=== PATIENT | female | born 1950 | race Hispanic/Latino ===

== ENCOUNTER → 2018-03-05 | Day surgery (SDC) | payer MEDICARE, OTHER ==
[2018-03-03 13:24] LABS: BASOPHILS % 0.4 % (0.0-1.0); EOSINOPHILS # (AUTO) 0.3 (0.0-0.4); EOSINOPHILS % 3.1 % (0.0-6.0); HEMATOCRIT 46.2 % (34.2-44.1); HEMOGLOBIN 15.3 g/dL (12.0-16.0); LYMPHOCYTES # (AUTO) 2.9 (1.0-3.2); LYMPHOCYTES % 28.1 % (18.0-39.1); MEAN CORPUSCULAR HEMOGLOBIN 28.6 pg (28-32); MEAN CORPUSCULAR HGB CONC 33.1 g/dL (31-35); MEAN CORPUSCULAR VOLUME 86.4 fL (81-99); MONOCYTES # (AUTO) 0.7 (0.2-0.8); MONOCYTES % 7.1 % (4.4-11.3); NEUTROPHILS # (AUTO) 6.2 (2.1-6.9); NEUTROPHILS % 60.8 % (38.7-80.0); PLATELET COUNT 235 x10e3/uL (140-360); RED BLOOD COUNT 5.35 x10e6/uL (3.6-5.1); RED CELL DISTRIBUTION WIDTH 12.1 % (11.7-14.4)
[~2018-03-05] MED LIST: ATORVASTATIN CA10 MG PO; DECARA25000 UNIT PO; EEMT DS 1.25-21 EACH PO; FENTANYL CITRATE/PF 100MCG/2 ML INJ ONE; GLUCAGON FOR INJ 1 MG VIAL ONE; LIDOCAINE HCL 2% LOCAL INJ 5 ML SDV VIAL INJ ONE; MIDAZOLAM HCL 2 MG/2 ML VIAL ONE; NADOLOL40 MG PO; OMEPRAZOLE40 MG PO; PROPOFOL IV EMULSION 10 MG/ML 50 ML VIAL ONE; RANITIDINE HCL150 MG PO; TRIAMTERENE-HCTZ1 EA PO; VENLAFAXINE H37.5 MG PO
--- OUTSIDE RECORDS SUMMARY | 2018-03-05 10:53 | XMS REPORT | Clinical Summary ---
Author Author [facility] Organization [facility] Address Unknown Phone Unavailable Care Team Providers Care Assembler Golf Wood Head Name Role Phone Lane John MD PCP Allergies Active Allergy Reactions Severity Noted Date Comments Codeine Hives High 12/19/2016 Latex Hives High 12/19/2016 tape Meperidine Hives High 12/19/2016 Morphine Rash High 12/19/2016 Naloxone Hives High 12/19/2016 Propoxyphene Rash High 12/19/2016 Sulfa (Sulfonamide Swelling High 12/19/2016 throat Antibiotics) Tramadol Itching 03/12/2017 Current Medications Prescription Sig. Disp. Refills Start End Date Status Date atorvastatin (LIPITOR) 10 TK 1 T PO QD 11 11/24/19 Active MG tablet 17 nadolol (CORGARD) 40 MG TAKE 1 T PO QD FOR 30 11 11/24/19 Active tablet DAYS 17 omeprazole (PriLOSEC) 40 TK 1 C PO BID 3 10/30/20 Active MG capsule 16 triamterene-hydrochloroth TK 1 T PO QAM 4 11/24/19 Active iazid (MAXZIDE-25) 17 37.5-25 mg per tablet venlafaxine XR TAKE 2 CS PO WITH FOOD 11 11/24/19 Active (EFFEXOR-XR) 37.5 MG 24 ONCE A DAY 17 hr capsule fenofibrate (TRICOR) 145 Take 145 mg by mouth Active MG tablet daily. traMADol (ULTRAM) 50 mg Take 1 tablet (50 mg 30 tablet 0 02/25/20 Discontin tablet total) by mouth every 6 17 17 ued (six) hours as needed for moderate pain for up to 30 days. Take with food Active Problems Problem Noted Date Aftercare following surgery 03/12/2017 Ganglion of right hand 02/24/2017 Primary localized osteoarthrosis of right hand 02/24/2017 Ganglion cyst of joint of finger of left hand 12/20/2016 Osteoarthritis of finger of left hand 12/20/2016 Encounters Date Type Specialty Care Team Description 04/03/2017 Office Visit Orthopedic Surgery Raul Philip MD Ganglion cyst of joint of finger of left hand (Primary Dx); Aftercare following surgery 03/19/2017 Office Visit Orthopedic Surgery Raul Philip MD Ganglion of right hand (Primary Dx); Osteoarthritis of finger of left hand; Aftercare following surgery 03/19/2017 Documentation Orthopedic Surgery Raul Philip MD 03/12/2017 Office Visit Orthopedic Surgery Raul Philip MD Ganglion cyst of joint of finger of left hand (Primary Dx); Primary localized osteoarthrosis of right hand; Aftercare following surgery after 03/04/2017 Family History Medical History Relation Name Comments Throat cancer Brother Throat cancer Father Heart disease Mother Relation Name Status Comments Brother Brother Alive Brother Alive Father (Age 72) Mother (Age 81) Sister Alive Social History Tobacco Use Types Packs/Day Years Used Date Never Smoker Smokeless Tobacco: Never Used Alcohol Use Drinks/Week oz/Week Comments No Sex Assigned at Date Recorded Not on file Last Filed Vital Signs Not on file Plan of Treatment Health Maintenance Due Date Last Done Comments COLONOSCOPY 02/15/2000 MAMMOGRAM 02/15/2000 SHINGRIX VACCINE (#1) 02/15/2000 ZOSTER VACCINE 2010 PNEUMOCOCCAL 2015 POLYSACCHARIDE VACCINE AGE 65 AND OVER PNEUMOCOCCAL-13 2015 INFLUENZA VACCINE 06/10/2018 Procedures Procedure Name Priority Date/Time Associated Diagnosis Comments ORTHOPEDIC INJURY Routine 03/12/2017 Ganglion cyst of joint of Results for this TREATMENT 11:09 AM CDT finger of left hand procedure are in the Primary localized results section. osteoarthrosis of right hand Aftercare following surgery after 03/04/2017 Results * ORTHOPEDIC INJURY TREATMENT (03/12/2017 11:09 AM) Narrative Raul Philip MD 03/12/2017 11:09 AM Orthopedic Injury Treatment Date/Time: 03/12/2017 11:08 AM Performed by: RAUL PHILIP Authorized by: RAUL PHILIP Consent given by: patient Site marked: site marked Timeout: Immediately prior to procedure a time out was called to verify the correct patient, procedure, equipment, applications support specialist and site/side marked as required Injury Location details: left long finger Pre-procedure assessment Distal perfusion: normal Distal sensation: normal Procedure Manipulation performed? no manipulation performed Anesthetics: local anesthesia not used Immobilization: splint Splint/Brace type: stack splint Post-procedure assessment Distal perfusion: normal Distal sensation: normal Patient tolerance: patient tolerated the procedure well with no immediate complications after 03/04/2017 Insurance Payer Benefit Subscriber ID Type Phone Address Plan / Group MEDICARE MEDICARE xxxxxxxxxx Medicare [place], [place] PART A AND B COLONIAL COLONIAL xxxxxxxxx Commercial [facility] xxxxxxxxx [facility]
[2018-03-05 14:35] LABS: WBC,FECAL (FECAL LACTOFERRIN) POSITIVE (NEGATIVE)
--- NOTE | 2018-03-05 14:56 | Operative Report ---
DATE OF PROCEDURE: March 05, 2018 REFERRING PHYSICIANS: Dell John MD, and Tho Vyas MD PROCEDURES PERFORMED 1. Esophagogastroduodenoscopy with esophageal dilatation and biopsies. 2. Colonoscopy with polypectomy and biopsies. INDICATIONS FOR EGD: Dysphagia to solids, heartburn, indigestion, bloating. INDICATIONS FOR COLONOSCOPY: Colorectal cancer screening. History of intermittent diarrhea. MEDICATION: Patient was done under MAC. Please see anesthesiologist's note. PROCEDURE: With the patient in the left lateral decubitus position, the flexible fiberoptic Olympus gastroscope was introduced into the esophagus under direct visualization without any difficulty. There was some patchy erythema noted in the distal esophagus. There was a mild stricture noted at the GE junction that was dilated to size 52-Tunisian Barr. The scope was then advanced with ease into the stomach, traversing a moderate-size hiatal hernia. Mucosa overlying the antrum and the body revealed some patchy erythema and mild to moderate edema, and biopsies were obtained and sent to stain for H. pylori. Hyperplastic-appearing polyps were noted in the body of the stomach, and some were partially excised with the cold biopsy forceps. The pylorus was of normal contour and shape. It was intubated with ease, and the scope was advanced all the way to the 2nd portion of the duodenum. The scope was then withdrawn slowly, and biopsies were obtained from the proximal 2nd portion to rule out sprue considering the patient's history of diarrhea. The mucosa overlying the duodenal bulb appeared to be within normal limits. The scope was then withdrawn back into the stomach and retroflexed. The mucosa overlying the fundus and the cardia appeared to be within normal limits. The scope was then straightened out. The stomach was decompressed. Scope was subsequently withdrawn. Patient tolerated the procedure well. IMPRESSION 1. Distal esophagitis. 2. 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 3. Moderate-size hiatal hernia. 4. Gastritis, biopsied. Biopsies sent to stain for H. pylori. 5. Gastric polyps, body, hyperplastic appearing, some partially excised with cold biopsy forceps. 6. Rule out sprue. PLAN: Follow up histology. Initiate Protonix 40 mg 1 p.o. q.a.m. a.c. The patient was then turned around. After adequate lubrication of the anal canal, a flexible fiberoptic Olympus colonoscope was inserted into the rectum with ease and advanced all the way to the cecum. The scope was then withdrawn slowly. Mucosa overlying the cecum, ascending colon, and transverse colon appeared to be within normal limits. The mucosa overlying the left colon revealed some patchy mild inflammatory changes. Multiple random biopsies were obtained. Also, diverticular disease was noted to involve the distal descending and the sigmoid colon. Similar findings were noted in the rectum, and biopsies were obtained. The scope was then retroflexed into the distal rectum, and small internal hemorrhoids were noted, none of which was actively bleeding. The scope was then straightened out. It was subsequently withdrawn after securing an adequate stool specimen that was sent for the appropriate stool studies. Patient tolerated the procedure well. IMPRESSION 1. Mild, patchy, left-sided colitis. 2. Sigmoid colon polyp, hot biopsied. 3. Diverticulosis. 4. Internal hemorrhoids, none actively bleeding. PLAN: Follow up histology. Follow up stool studies. Initiate VSL #3 DS 1 p.o. b.i.d. Job#: [id number] cc:DO THO CHOW MD
[2018-03-06 10:05] LABS: C DIFFICILE TOXIN A&B AMP PROB NEGATIVE (NEGATIVE)
== END | disposition home or self-care (01) ==
LOC: OR 10:51
PROVIDERS: ATTEND Internal Medicine Gastroenterology
PROC: 0DBN8ZZ Excision of Sigmoid Colon, Via Natural or Artificial Opening Endoscopic (ICD-10-PCS; principal; 2018-03-05 12:31)
PROC: 0DBG8ZZ Excision of Left Large Intestine, Via Natural or Artificial Opening Endoscopic (ICD-10-PCS; 2018-03-05 12:31)
PROC: 0DBP8ZZ Excision of Rectum, Via Natural or Artificial Opening Endoscopic (ICD-10-PCS; 2018-03-05 12:31)
PROC: 0DB68ZZ Excision of Stomach, Via Natural or Artificial Opening Endoscopic (ICD-10-PCS; 2018-03-05 12:31)
PROC: 0D718ZZ Dilation of Upper Esophagus, Via Natural or Artificial Opening Endoscopic (ICD-10-PCS; 2018-03-05 12:31)
DX: Z12.11 Encounter for screening for malignant neoplasm of colon (principal); K63.5 Polyp of colon; K31.7 Polyp of stomach and duodenum; K29.70 Gastritis, unspecified, without bleeding; K51.50 Left sided colitis without complications; K21.9 Gastro-esophageal reflux disease without esophagitis; K57.30 Diverticulosis of large intestine without perforation or abscess without bleeding; K20.9 Esophagitis, unspecified; K22.2 Esophageal obstruction; K44.9 Diaphragmatic hernia without obstruction or gangrene; K59.00 Constipation, unspecified; K64.8 Other hemorrhoids; G47.33 Obstructive sleep apnea (adult) (pediatric); M19.90 Unspecified osteoarthritis, unspecified site; I10 Essential (primary) hypertension; E78.5 Hyperlipidemia, unspecified; F41.9 Anxiety disorder, unspecified; F32.9 Major depressive disorder, single episode, unspecified; Z88.5 Allergy status to narcotic agent; Z01.810 Encounter for preprocedural cardiovascular examination; Z01.812 Encounter for preprocedural laboratory examination; Z68.33 Body mass index [BMI] 33.0-33.9, adult; Z80.0 Family history of malignant neoplasm of digestive organs
CPT/HCPCS: 36415; 43239; 43450; 45380; 45384; 83630; 83993; 85025; 87045; 87177; 87328; 87493; 88305; 88312; 93005; J1610; J2001; J2250; 45378

== ENCOUNTER → 2018-03-16 | Outpatient (CLI) | payer MEDICARE, OTHER ==
[~2018-03-16] MED LIST changes: -FENTANYL CITRATE/PF 100MCG/2 ML INJ ONE; -GLUCAGON FOR INJ 1 MG VIAL ONE; -LIDOCAINE HCL 2% LOCAL INJ 5 ML SDV VIAL INJ ONE; -MIDAZOLAM HCL 2 MG/2 ML VIAL ONE; -PROPOFOL IV EMULSION 10 MG/ML 50 ML VIAL ONE
--- NOTE | 2018-03-16 15:44 | Diagnostic Imaging Report ---
EXAM: Complete Abdominal Ultrasound INDICATION: \S\ABDOMINAL PAIN COMPARISON: None available. TECHNIQUE: Transverse and longitudinal images of the upper abdomen were obtained. FINDINGS: Liver: Size: 16.5 cm in the right midclavicular line, normal Appearance: Normal echogenicity, smooth contour Mass: No focal masses Spleen: Size: 8.9 cm in length, normal Echogenicity: Normal Mass: No focal masses Gallbladder: Stones/Sludge: Filled with shadowing gallstones and sludge. Wall: 0.2 cm Appearance: No pericholecystic fluid or hydrops. Sonographic Hutchins's Sign: Negative Bile Ducts: Intrahepatic Ducts: No dilatation Extrahepatic Ducts: Common bile duct measures 0.4 cm, no dilatation Pancreas: Visualized pancreas is unremarkable. Right Kidney: Size: 9.9 cm Echogenicity: Normal Parenchymal thickness: Normal Collecting System: No hydronephrosis Stone: None Cyst/Mass: None Left Kidney: Size: 10 cm Echogenicity: Normal Parenchymal thickness: Normal Collecting System: No hydronephrosis Stone: None Cyst/Mass: None Vessels: Aorta: Visualized portions are normal Inferior Vena Cava: Visualized portions are normal Main Portal Vein: 1.0 cm, normal size with hepatopetal flow. Free Fluid: No ascites or pleural effusion IMPRESSION: Gallbladder is filled with shadowing gallstones and sludge. No signs of cholecystitis. Signed by: Dr. Leobardo Rivera MD on 03/16/2018 3:40 PM
== END ==
LOC: US 13:03
PROVIDERS: ATTEND Internal Medicine Gastroenterology
DX: R10.9 Unspecified abdominal pain (principal)
CPT/HCPCS: 76700

== ENCOUNTER 2018-03-24 09:11 | Inpatient (IN) | payer MEDICARE, OTHER ==
[2018-03-23 14:40] LABS: BASOPHILS # (AUTO) 0.1 (0.0-0.1); BASOPHILS % 0.5 % (0.0-1.0); EOSINOPHILS # (AUTO) 0.4 (0.0-0.4); EOSINOPHILS % 3.8 % (0.0-6.0); HEMATOCRIT 47.9 % (34.2-44.1); HEMOGLOBIN 15.6 g/dL (12.0-16.0); LYMPHOCYTES # (AUTO) 3.3 (1.0-3.2); LYMPHOCYTES % 31.1 % (18.0-39.1); MEAN CORPUSCULAR HEMOGLOBIN 28.2 pg (28-32); MEAN CORPUSCULAR HGB CONC 32.6 g/dL (31-35); MEAN CORPUSCULAR VOLUME 86.6 fL (81-99); MONOCYTES # (AUTO) 0.9 (0.2-0.8); MONOCYTES % 8.1 % (4.4-11.3); NEUTROPHILS % 56.1 % (38.7-80.0); PLATELET COUNT 267 x10e3/uL (140-360); RED BLOOD COUNT 5.53 x10e6/uL (3.6-5.1); RED CELL DISTRIBUTION WIDTH 12.5 % (11.7-14.4)
[2018-03-23 14:43] LABS: BILIRUBIN,URINE NEGATIVE (NEGATIVE); CLARITY,URINE CLEAR (CLEAR); COLOR,URINE YELLOW (YELLOW); KETONES,URINE NEGATIVE (NEGATIVE); LEUKOCYTE ESTERASE ,URINE NEGATIVE (NEGATIVE); NITRITE,URINE NEGATIVE (NEGATIVE); PROTEIN,URINE DIPSTICK NEGATIVE (NEGATIVE); URINE UROBILINOGEN 0.2 mg/dL (0.2 - 1)
--- NOTE | 2018-03-23 14:47 | Diagnostic Imaging Report ---
PROCEDURE: X-RAY CHEST, TWO VIEWS COMPARISON: Chest x-ray 09/26/16. INDICATIONS: HIATAL HERNIA REPAIR, PRE OPERATIVE CHEST X-RAY FINDINGS: LUNGS: No mass, infiltrate, or interstitial thickening. Pulmonary vasculature is normal. PLEURA: No effusions or pneumothorax. HEART \T\ MEDIASTINUM: The heart is within normal size-limits. BONES \T\ SOFT TISSUES: Fusion plate in lower cervical spine is stable. No focal osseous lesions. Soft tissues are unremarkable. CONCLUSION: No acute thoracic abnormality. Dictated by: Barbara Scott M.D. on 03/23/2018 at 14:49 Electronically approved by: Barbara Scott M.D. on 03/23/2018 at 14:49
[2018-03-23 15:00] LABS: ALBUMIN 3.6 g/dL (3.5-5.0); ALBUMIN/GLOBULIN RATIO 0.9 (0.8-2.0); ANION GAP 12.4 mmol/L (8-16); CALCIUM 9.8 mg/dL (8.4-10.2); CREATININE, SERUM 1.16 mg/dL (0.57-1.11); POTASSIUM 3.4 mmol/L (3.5-5.1)
[~2018-03-24] VITALS: Ht 154.9 cm; Wt 80.3 kg
--- OUTSIDE RECORDS SUMMARY | 2018-03-24 09:13 | XMS REPORT ---
Author Author [facility] Address Unknown Phone Unavailable Care Team Providers Care Contracting Support Specialist Name Role Phone KATIE DRAKE Unavailable Unavailable JOSEPH DIETRICH Unavailable Unavailable Problems This patient has no known problems. Allergies, Adverse Reactions, Alerts This patient has no known allergies or adverse reactions. Medications This patient has no known medications. Results Test Description Test Time Test Comments Text Results Atomic Results Result Comments CHEST 2 VIEWS [place] [address] Patient Name: GILLIAN BLACKMON MR #: [id number] : 1950 Age/Sex: 68/F Req #: [id number] [facility] Physician: Ordered by: KATIE DRAKE MD Report #: [id number] Location: OR Room/Bed: Procedure: [id number] DX/CHEST 2 VIEWS Exam Date: 03/23/18 Exam Time: 1420 REPORT STATUS: Signed PROCEDURE: X-RAY CHEST, TWO VIEWS COMPARISON: Chest x-ray 09/26/16. INDICATIONS: HIATAL HERNIA REPAIR, PRE OPERATIVE CHEST X-RAY FINDINGS: LUNGS: No mass, infiltrate, or interstitial thickening. Pulmonary vasculature is normal. PLEURA: No effusions or pneumothorax. HEART T MEDIASTINUM: The heart is within normal size-limits. BONES T SOFT TISSUES: Fusion plate in lower cervical spine is stable. No focal osseous lesions. Soft tissues are unremarkable. CONCLUSION: No acute thoracic abnormality. Dictated by: Jennifer Scott M.D. on 03/23/2018 at 14:49 Electronically approved by: Jennifer Soctt M.D. on 03/23/2018 at 14:49 Dictated By: JENNIFER SCOTT MD 48 Transcribed By: ROSCOE on 03/23/181448 COPY TO: KATIE DRAKE MD US ABDOMEN COMPLETE [place] [address] Patient Name: GILLIAN BLACKMON MR #: [id number] : 1950 Age/Sex: 68/F Req #: [id number] Adm Physician: Ordered by: JOSEPH DIETRICH MD Report #: [id number] Location: US Room/Bed: Procedure: [id number] US/US ABDOMEN COMPLETE Exam Date: Exam Time: REPORT STATUS: Signed EXAM: Complete Abdominal Ultrasound INDICATION: COMPARISON: None available. TECHNIQUE: Transverse and longitudinal images of the upper abdomen were obtained. FINDINGS: Liver: Size: 16.5 cm in the right midclavicular line, normal Appearance: Normal echogenicity, smooth contour Mass: No focal masses Spleen: Size: 8.9 cm in length, normal Echogenicity: Normal Mass: No focal masses Gallbladder: Stones/Sludge: Filled with shadowing gallstones and sludge. Wall: 0.2 cm Appearance: No pericholecystic fluid or hydrops. Sonographic Hutchins's Sign: Negative Bile Ducts: Intrahepatic Ducts: No dilatation Extrahepatic Ducts: Common bile duct measures 0.4 cm, no dilatation Pancreas: Visualized pancreas is unremarkable. Right Kidney: Size: 9.9 cm Echogenicity: Normal Parenchymal thickness: Normal Collecting System: No hydronephrosis Stone: None Cyst/Mass: None Left Kidney: Size: 10 cm Echogenicity: Normal Parenchymal thickness: Normal Collecting System: No hydronephrosis Stone: None Cyst/Mass: None Vessels: Aorta: Visualized portions are normal Inferior Vena Cava: Visualized portions are normal Main Portal Vein: 1.0 cm, normal size with hepatopetal flow. Free Fluid: No ascites or pleural effusion IMPRESSION: Gallbladder is filled with shadowing gallstones and sludge. No signs of cholecystitis. Signed by: Dr. Leobardo Ibarra MD on 03/16/2018 3:40 PM Dictated By: LEOBARDO IBARRA MD 1545 Transcribed By: RAMEZ on 03/16/18 5910 COPY TO: JOSEPH DIETRICH MD
--- OUTSIDE RECORDS SUMMARY | 2018-03-24 09:13 | XMS REPORT | Clinical Summary ---
Author Author [employer] Organization [facility] Address Unknown Phone Unavailable Care Team Providers Care Transition Nurse Name Role Phone Lane John MD PCP [...] mg by mouth Active MG tablet daily. Active Problems Problem Noted Date Aftercare following [...] left hand (Primary Dx); Aftercare following surgery after 03/23/2017 Family History Medical History Relation Name Comments [...] AND OVER PNEUMOCOCCAL-13 2015 INFLUENZA VACCINE 06/10/2018 Results Not on fileafter 03/23/2017 Insurance Payer Benefit Subscriber ID Type Phone Address Plan / Group MEDICARE MEDICARE xxxxxxxxxx Medicare [place], [place] PART A AND B COLONIAL COLONIAL xxxxxxxxx Commercial [facility] xxxxxxxxx [employer] INDEMNITY
[2018-03-24] MEDS ORDERED: BUPIVACAINE 0.25%/EPI 30ML SDV INJ ONE (09:15)
[2018-03-24] MEDS ORDERED: HYDROMORPHONE 1MG/1ML INJ IV PRN (12:30)
[2018-03-24] MEDS ORDERED: PROMETHAZINE HCL (IM) 25 MG/ML VIAL IV PRN (12:30)
[2018-03-24] MEDS ORDERED: ACETAMINOPHEN 1000 MG/100 ML IV PRN (12:30)
[2018-03-24] MEDS ORDERED: FENTANYL CITRATE/PF 100MCG/2 ML INJ ONE ×2 (13:09→18:06)
[2018-03-24] MEDS ORDERED: CEFAZOLIN SOD 1 GM/NS 50ML 50 ML IV SCH (14:00)
[2018-03-24] MEDS ORDERED: HYDROMORPHONE 2MG/ML INJ IV PRN (14:15)
--- OUTSIDE RECORDS SUMMARY | 2018-03-24 14:17 | XMS REPORT | Clinical Summary ---
Author Author [employer] Organization [facility] Address Unknown Phone Unavailable Care Team Providers Care Pipe Cutter Name Role Phone Lane John MD PCP [...] Plan / Group MEDICARE MEDICARE xxxxxxxxxx Medicare [place], [place] PART A AND B COLONIAL COLONIAL xxxxxxxxx Commercial [facility] xxxxxxxxx [employer] INDEMNITY
--- NOTE | 2018-03-24 14:46 | Operative Report ---
DATE OF PROCEDURE: March 24, 2018 PREOPERATIVE DIAGNOSES 1. Hiatal hernia with gastroesophageal reflux disease. 2. Cholecystitis and cholelithiasis. POSTOPERATIVE DIAGNOSES 1. Hiatal hernia with gastroesophageal reflux disease. 2. Cholecystitis and cholelithiasis. OPERATION PERFORMED 1. Laparoscopic repair of hiatal hernia, Kimmy fundoplication. 2. Cholecystectomy. TOLL REPAIRER CENTRAL OFFICE: SPENCER Finn. ANESTHESIA: General. COMPLICATIONS: None. ESTIMATED BLOOD LOSS: Minimal. DESCRIPTION OF PROCEDURE: With the patient lying in bed in the supine position, under good general endotracheal anesthesia, the abdomen was prepped with Betadine solution and draped in the usual manner. A Veress needle was introduced into the left upper abdomen. A pneumoperitoneum was established without any difficulty. An 11-mm trocar was placed in the left upper abdomen, and a 10-mm video laparoscope was placed into the intraabdominal cavity. Under direct vision, two 5-mm trocars were placed in the subxiphoid region. Another two 5-mm trocars were placed in the right subcostal region. Another 11-mm trocar was placed in the left upper abdomen. Video laparoscopy at this point revealed, as expected, a moderate to large size hiatal hernia and a gallbladder that contained multiple gallstones. The hiatus also was rather fatty with a lot of adhesions and fatty tissue around the lower esophagus at the hiatus. Using the Harmonic scalpel, the right crura was then freed up from all of the adhesions and omentum that was stuck in this area. The right crura was identified, and the esophagus was then dissected anteriorly as well. The esophagus was then freed posteriorly all the way to the other side of the left crura where there was a free space. The short gastrics were taken down with the Harmonic scalpel all the way up to the top, and the entire hiatus was freed up circumferentially. A bougie and an NG tube had been placed in the stomach. The hiatal hernia was then repaired with sutures of #0 Ethibond posteriorly, bringing the right and left crura together without any tension. This gave us a satisfactory closure without any problems. After this was done, the fundus was then brought in a retroesophageal fashion without any tension whatsoever, since all of the short gastrics had been freed up. A Kimmy fundoplication was then performed using interrupted sutures of #0 Ethibond. Three sutures were needed wrapping one side of the fundus to the lower esophagus to the other side of the fundus, creating a 360-degree floppy Kimmy fundoplication that had absolutely no tension. Three sutures were necessary to achieve this. The bougie was then removed, and the NG tube was left in the stomach in place. Perfect hemostasis was ascertained. The cholecystectomy was then performed. The peritoneum overlying the neck of the gallbladder was then opened, and the cystic duct was identified. The cystic duct was then followed to its junction with the common duct. Cystic duct was then circumferentially dissected away from the common duct, doubly clipped and divided. The cystic artery was similarly doubly clipped and divided. There was an anterior and a posterior branch. The gallbladder was then slowly and carefully taken off the liver bed using the cautery scissors, and perfect hemostasis was ascertained. The gallbladder was then placed in a pouch and removed through the 11-mm trocar in the left mid abdomen without any difficulty. Video laparoscopy was then again carried out. Liver bed was found to be perfectly dry. All of the excess fluid was aspirated. Pneumoperitoneum was evacuated, and all the trocars were removed under direct vision. The fascia at the 11-mm trocar site was then closed with a [id number] of #0 Vicryl. All layers were infiltrated on the way out with solution of 1/4 percent Marcaine. Subcutaneous tissue was approximated with 3-0 Vicryl, and the skin was closed with clips. Dressings were applied. The sponge, lap and needle count was correct. Patient tolerated the procedure well and returned to the recovery room in stable condition. Job#: [id number]
[2018-03-24] MEDS: SODIUM CHLORIDE 0.9% 250ML IRRIG IR SCH ×3 (15:17→21:00)
[2018-03-24 15:18] VITALS: BP 158/80
[2018-03-24 15:30] VITALS: BP 158/80
[2018-03-24] MEDS: PANTOPRAZOLE 40 MG 10ML VIAL IV SCH (15:34)
[2018-03-24] MEDS: DEXTROSE 5%/LACTATED RINGERS 1,000 ML IV SCH (15:35)
[2018-03-24] MEDS: CEFAZOLIN SOD 1 GM VIAL IV SCH ×2 (15:35→22:48)
[2018-03-24 16:24] VITALS: BP 150/80
[2018-03-24] MEDS ORDERED: MIDAZOLAM HCL 2 MG/2 ML VIAL ONE (18:06)
[2018-03-24] MEDS ORDERED: PROPOFOL IV EMULSION 10 MG/ML 20 ML VIAL ONE (18:50)
[2018-03-24] MEDS ORDERED: LIDOCAINE HCL 2% LOCAL INJ 5 ML SDV VIAL INJ ONE (18:50)
[2018-03-24] MEDS ORDERED: NEOSTIGMINE 5 MG/5ML SYR ONE (18:50)
[2018-03-24] MEDS ORDERED: DEXAMETHASONE SOD PHOS INJ 4 MG/ML VIAL ONE (18:50)
[2018-03-24] MEDS ORDERED: EPHEDRINE SULFATE INJ 50 MG/10 ML SYR ONE (18:50)
[2018-03-24] MEDS ORDERED: SEVOFLURANE INHAL SOLN 250 ML PEN BTL ONE (18:50)
[2018-03-24] MEDS ORDERED: ONDANSETRON HCL INJ 2 MG/ML VIAL ONE (18:50)
[2018-03-24] MEDS ORDERED: ROCURONIUM BROMIDE 10 MG/ML 5ML VIAL ONE (18:50)
[2018-03-24] MEDS ORDERED: GLYCOPYRROLATE INJ 1MG/ 5 ML SYR ONE (18:50)
[2018-03-24 20:00] VITALS: BP 138/78
[2018-03-25] VITALS (8 sets, daily range): BP systolic 154–195; BP diastolic 68–87
[2018-03-25] MEDS: SODIUM CHLORIDE 0.9% 250ML IRRIG IR SCH ×6 (01:47→19:38)
[2018-03-25] MEDS: DEXTROSE 5%/LACTATED RINGERS 1,000 ML IV SCH ×3 (02:01→19:45)
[2018-03-25] MEDS: HYDROMORPHONE 2MG/ML INJ IV PRN ×3 (04:20→22:25)
[2018-03-25 06:59] LABS: BASOPHILS % 0.1 % (0.0-1.0); EOSINOPHILS % 0.1 % (0.0-6.0); HEMATOCRIT 40.7 % (34.2-44.1); LYMPHOCYTES % 12.6 % (18.0-39.1); MEAN CORPUSCULAR HEMOGLOBIN 28.5 pg (28-32); MEAN CORPUSCULAR HGB CONC 31.9 g/dL (31-35); MEAN CORPUSCULAR VOLUME 89.3 fL (81-99); MONOCYTES # (AUTO) 0.9 (0.2-0.8); MONOCYTES % 5.9 % (4.4-11.3); NEUTROPHILS # (AUTO) 12.7 (2.1-6.9); NEUTROPHILS % 80.7 % (38.7-80.0); PLATELET COUNT 215 x10e3/uL (140-360); RED BLOOD COUNT 4.56 x10e6/uL (3.6-5.1); RED CELL DISTRIBUTION WIDTH 12.8 % (11.7-14.4)
[2018-03-25 07:17] LABS: ANION GAP 11.4 mmol/L (8-16); BLOOD UREA NITROGEN 11 mg/dL (7-26); BUN/CREATININE RATIO 12 (6-25); CALCIUM 8.6 mg/dL (8.4-10.2); CARBON DIOXIDE 30 mmol/L (22-29); CHLORIDE 106 mmol/L (98-107); EST GLOMERULAR FILTRATION RATE > 60 ML/MIN (60-); GLUCOSE 120 mg/dL (74-118); POTASSIUM 3.4 mmol/L (3.5-5.1); SODIUM 144 mmol/L (136-145)
[2018-03-25] MEDS: PANTOPRAZOLE 40 MG 10ML VIAL IV SCH (12:31)
[2018-03-25] MEDS: ACETAMINOPHEN 1000 MG/100 ML IV PRN (19:46)
[2018-03-25] MEDS: BISACODYL 10 MG SUPP PR SCH (21:10)
[2018-03-26] VITALS (8 sets, daily range): BP systolic 143–187; BP diastolic 66–87
[2018-03-26] MEDS: SODIUM CHLORIDE 0.9% 250ML IRRIG IR SCH ×6 (00:14→19:10)
[2018-03-26] MEDS: DEXTROSE 5%/LACTATED RINGERS 1,000 ML IV SCH ×3 (01:00→21:55)
[2018-03-26] MEDS: ACETAMINOPHEN 1000 MG/100 ML IV PRN ×2 (06:03→14:23)
[2018-03-26] MEDS: BISACODYL 10 MG SUPP PR SCH (10:05)
[2018-03-26] MEDS: PANTOPRAZOLE 40 MG 10ML VIAL IV SCH (12:37)
[2018-03-26] MEDS ORDERED: NADOLOL 40 MG TAB PO ONE (18:30)
[2018-03-26] MEDS ORDERED: NADOLOL 40 MG TAB PO SCH (21:00)
[2018-03-26] MEDS ORDERED: NON-FORMULARY MEDICATION (Ranitidine Hcl 150 MG) PO SCH (21:00)
[2018-03-26] MEDS ORDERED: FAMOTIDINE 20 MG TAB PO SCH (21:00)
[2018-03-26] MEDS: VENLAFAXINE HCL 37.5 MG TAB PO SCH (21:26)
[2018-03-26] MEDS ORDERED: ACETAMINOPHEN 1000 MG/100 ML IV PRN (21:30)
[2018-03-27] VITALS: BP 190/85
[2018-03-27 04:00] VITALS: BP 190/77
[2018-03-27 08:11] VITALS: BP 173/82
[2018-03-27] MEDS: VENLAFAXINE HCL 37.5 MG TAB PO SCH (08:11)
[2018-03-27] MEDS ORDERED: TRIAMTERENE/HCTZ 37.5-25 MG TAB PO SCH (09:00)
[2018-03-27 10:00] VITALS: BP 173/82
[2018-03-27] MEDS: PANTOPRAZOLE 40 MG 10ML VIAL IV SCH (13:35)
[2018-03-27 17:48] VITALS: BP 184/84
[2018-03-27] MEDS ORDERED: NADOLOL 40 MG TAB PO SCH (21:00)
== END 2018-03-27 17:56 | disposition home or self-care (01) | DRG 327 ==
LOC: OR 09:11 → MED/SURG 14:14
PROVIDERS: ADMIT Surgery; ATTEND Surgery
PROC: 0DV44ZZ Restriction of Esophagogastric Junction, Percutaneous Endoscopic Approach (ICD-10-PCS; 2018-03-24)
PROC: 0BQT4ZZ Repair Diaphragm, Percutaneous Endoscopic Approach (ICD-10-PCS; 2018-03-24)
PROC: 0FT44ZZ Resection of Gallbladder, Percutaneous Endoscopic Approach (ICD-10-PCS; principal; 2018-03-24 12:30)
CPT/HCPCS: 36415; 71046; 80048; 80053; 81003; 82948; 85025; 88304; 93005; J0690; J1100; J2001; J2250; J2405; J7120

== ENCOUNTER → 2018-06-19 | Day surgery (SDC) | payer MEDICARE, OTHER ==
[2018-06-17 12:23] LABS: BASOPHILS % 0.4 % (0.0-1.0); EOSINOPHILS # (AUTO) 0.3 (0.0-0.4); EOSINOPHILS % 2.7 % (0.0-6.0); HEMATOCRIT 42.8 % (34.2-44.1); HEMOGLOBIN 14.2 g/dL (12.0-16.0); LYMPHOCYTES # (AUTO) 3.2 (1.0-3.2); LYMPHOCYTES % 33.8 % (18.0-39.1); MEAN CORPUSCULAR HEMOGLOBIN 28.1 pg (28-32); MEAN CORPUSCULAR HGB CONC 33.2 g/dL (31-35); MEAN CORPUSCULAR VOLUME 84.8 fL (81-99); MONOCYTES # (AUTO) 0.6 (0.2-0.8); MONOCYTES % 5.9 % (4.4-11.3); NEUTROPHILS # (AUTO) 5.3 (2.1-6.9); PLATELET COUNT 227 x10e3/uL (140-360); RED BLOOD COUNT 5.05 x10e6/uL (3.6-5.1); RED CELL DISTRIBUTION WIDTH 13.9 % (11.7-14.4)
[~2018-06-19] MED LIST changes: +FENTANYL CITRATE/PF 100MCG/2 ML INJ ONE; +METOCLOPRAMIDE HCL 10 MG/2ML VIAL ONE; +MIDAZOLAM HCL 2 MG/2 ML VIAL ONE; +PROPOFOL IV EMULSION 10 MG/ML 50 ML VIAL ONE
[2018-06-19 17:58] LABS: BILIRUBIN,DIRECT 0.3 mg/dL (0.0-0.5)
--- NOTE | 2018-06-19 20:01 | Operative Report ---
DATE OF PROCEDURE: June 19, 2018 REFERRING PHYSICIAN: Dr. Nori Patricia. PROCEDURE PERFORMED: Esophagogastroduodenoscopy with pyloric channel dilatation and biopsies. INDICATIONS FOR Esophagogastroduodenoscopy: Nausea and melena. MEDICATION: Patient was done under MAC. Please see anesthesiologist's note. PROCEDURE: With patient in the left lateral decubitus position, flexible fiberoptic Olympus gastroscope was introduced into the esophagus under direct visualization without any difficulty. Some grade 1 esophageal varices versus prominent esophageal veins were noted. There was no active bleeding. There was some patchy erythema noted in distal esophagus. The scope was then advanced with ease into the stomach traversing a moderate-sized hiatal hernia. The mucosa overlying the antrum revealed some patchy areas of erythema and an approximately 4 mm ulcer without active bleeding that was biopsied. Moderate to large amount of retained undigested food was noted in stomach precluding visualization of the proximal body as well as the fundus of the stomach. The pyloric channel was strictured and that was dilated to size 20 mm per TTS balloon dilators. The scope was then advanced with ease into the 2nd portion of the duodenum. It was then withdrawn slowly. Mucosa overlying the proximal 2nd portion and the duodenal bulb appeared to be within normal limits. The scope was then withdrawn back into the stomach and retroflexed, and the fundus and the proximal body of the stomach could not be visualized due to the retained undigested food. The scope was then straightened out. It was subsequently withdrawn. Patient tolerated procedure well. IMPRESSION: 1. Distal esophagitis, mild. 2. Moderate-sized hiatal hernia. 3. Large amount of retained undigested food stuff in the stomach precluding visualization of fundus and upper body. 4. Gastric ulcer, antrum, biopsied. 5. 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 PLAN: Follow up histology. Initiate Protonix 40 mg 1 p.o. q.a.m. a.c. Job#: [id number] GH cc:NORI PATRICIA DO
== END | disposition home or self-care (01) ==
LOC: OR 13:08
PROVIDERS: ATTEND Internal Medicine Gastroenterology
DX: K25.9 Gastric ulcer, unspecified as acute or chronic, without hemorrhage or perforation (principal); K31.1 Adult hypertrophic pyloric stenosis; K20.9 Esophagitis, unspecified; K31.89 Other diseases of stomach and duodenum; K21.9 Gastro-esophageal reflux disease without esophagitis; K44.9 Diaphragmatic hernia without obstruction or gangrene; I10 Essential (primary) hypertension; E78.00 Pure hypercholesterolemia, unspecified; G47.30 Sleep apnea, unspecified; Z88.6 Allergy status to analgesic agent; Z88.2 Allergy status to sulfonamides; Z91.048 Other nonmedicinal substance allergy status; Z01.810 Encounter for preprocedural cardiovascular examination; Z01.812 Encounter for preprocedural laboratory examination; Z68.32 Body mass index [BMI] 32.0-32.9, adult; Z80.0 Family history of malignant neoplasm of digestive organs
CPT/HCPCS: 36415 ×2; 43239; 43245; 80076; 85025; 88305; 88312; 93005; C1726; J2250; J2765

== ENCOUNTER 2018-11-20 11:48 | Emergency (ER) | payer MEDICARE, OTHER ==
[~2018-11-20] VITALS: Ht 154.9 cm; Wt 66.2 kg
[~2018-11-20 11:48] MED LIST changes: -FENTANYL CITRATE/PF 100MCG/2 ML INJ ONE; -METOCLOPRAMIDE HCL 10 MG/2ML VIAL ONE; -MIDAZOLAM HCL 2 MG/2 ML VIAL ONE; -PROPOFOL IV EMULSION 10 MG/ML 50 ML VIAL ONE
--- OUTSIDE RECORDS SUMMARY | 2018-11-20 11:53 | XMS REPORT | Clinical Summary ---
Author Author [facility] Organization [facility] Address Unknown Phone Unavailable Care Team Providers Care Voucher Clerk Name Role Phone Dell John MD PCP Allergies Comments Active Allergy Reactions Severity Noted Date Codeine Hives High 12/19/2016 tape Latex Hives High 12/19/2016 Meperidine Hives High 12/19/2016 Morphine Rash High 12/19/2016 Naloxone Hives High 12/19/2016 Propoxyphene Rash High 12/19/2016 throat Sulfa (Sulfonamide Swelling High 12/19/2016 Antibiotics) Tramadol Itching 03/12/2017 Medications End Date Status Medication Sig Dispensed Refills Start Date Active atorvastatin (LIPITOR) 10 TK 1 T PO QD 11 MG tablet 7 Active nadolol (CORGARD) 40 MG TAKE 1 T PO 11 tablet QD FOR 30 7 DAYS Active omeprazole (PriLOSEC) 40 TK 1 C PO 3 MG capsule BID 6 Active triamterene-hydrochloroth TK 1 T PO QAM 4 iazid (MAXZIDE-25) 7 37.5-25 mg per tablet Active venlafaxine XR TAKE 2 CS PO 11 (EFFEXOR-XR) 37.5 MG 24 WITH FOOD 7 hr capsule ONCE A DAY Active fenofibrate (TRICOR) 145 Take 145 mg 0 MG tablet by mouth daily. Active Problems Problem Noted Date Aftercare following surgery 03/12/2017 Ganglion of right hand 02/24/2017 Primary localized osteoarthrosis of right hand 02/24/2017 Ganglion cyst of joint of finger of left hand 12/20/2016 Osteoarthritis of finger of left hand 12/20/2016 Family History Medical History Relation Name Comments Throat cancer Brother Throat cancer Father Heart disease Mother Relation Name Status Comments Brother Brother Alive Brother Alive Father (Age 72) Mother (Age 81) Sister Alive Social History Date Tobacco Use Types Packs/Day Years Used Never Smoker Smokeless Tobacco: Never Used Alcohol Use Drinks/Week oz/Week Comments No Sex Assigned at Date Recorded Not on file Industry Job Start Date Occupation Not on file Not on file Not on file Travel End Travel History Travel Start No recent travel history available. Last Filed Vital Signs Not on file Plan of Treatment Health Maintenance Due Date Last Done Comments BREAST CANCER SCREENING 02/15/2000 COLON CANCER SCREENING 02/15/2000 SHINGLES VACCINES (1 of 02/15/2000 2) PNEUMOCOCCAL 2015 POLYSACCHARIDE VACCINE AGE 65 AND OVER PNEUMOCOCCAL-13 2015 INFLUENZA VACCINE 06/10/2018 Results Not on fileafter 11/19/2017 Insurance Payer Benefit Subscriber ID Type Phone Address Plan / Group MEDICARE MEDICARE xxxxxxxxxx Medicare [place], [place] PART A AND B COLONIAL COLONIAL xxxxxxxxx Commercial [facility] x[facility] Advance Directives Patient has advance care planning documents on file. For more information, sunita carver contact: [employer] [address] [place] [address]
[2018-11-20 12:42] LABS: BASOPHILS # (AUTO) 0.1 (0.0-0.1); BASOPHILS % 0.6 % (0.0-1.0); EOSINOPHILS # (AUTO) 0.4 (0.0-0.4); EOSINOPHILS % 3.9 % (0.0-6.0); HEMATOCRIT 44.6 % (34.2-44.1); HEMOGLOBIN 14.5 g/dL (12.0-16.0); LYMPHOCYTES # (AUTO) 2.6 (1.0-3.2); LYMPHOCYTES % 29.8 % (18.0-39.1); MEAN CORPUSCULAR HEMOGLOBIN 27.9 pg (28-32); MEAN CORPUSCULAR HGB CONC 32.5 g/dL (31-35); MEAN CORPUSCULAR VOLUME 85.8 fL (81-99); MONOCYTES # (AUTO) 0.5 (0.2-0.8); MONOCYTES % 5.9 % (4.4-11.3); NEUTROPHILS # (AUTO) 5.3 (2.1-6.9); NEUTROPHILS % 59.6 % (38.7-80.0); PLATELET COUNT 276 x10e3/uL (140-360); RED CELL DISTRIBUTION WIDTH 15.1 % (11.7-14.4)
[2018-11-20 13:05] LABS: ALANINE AMINOTRANSFERASE 23 IU/L (0-55); ALBUMIN 3.6 g/dL (3.5-5.0); ALBUMIN/GLOBULIN RATIO 1.2 (0.8-2.0); ALKALINE PHOSPHATASE 77 IU/L (40-150); ANION GAP 12.4 mmol/L (8-16); BLOOD UREA NITROGEN 12 mg/dL (7-26); BUN/CREATININE RATIO 15 (6-25); CALCIUM 9.7 mg/dL (8.4-10.2); CARBON DIOXIDE 31 mmol/L (22-29); CHLORIDE 105 mmol/L (98-107); CREATININE, SERUM 0.82 mg/dL (0.57-1.11); EST GLOMERULAR FILTRATION RATE > 60 ML/MIN (60-); GLUCOSE 72 mg/dL (74-118); POTASSIUM 3.4 mmol/L (3.5-5.1); SODIUM 145 mmol/L (136-145)
[2018-11-20 13:14] LABS: BILIRUBIN,URINE NEGATIVE (NEGATIVE); CLARITY,URINE CLEAR (CLEAR); COLOR,URINE YELLOW (YELLOW); KETONES,URINE NEGATIVE (NEGATIVE); LEUKOCYTE ESTERASE ,URINE NEGATIVE (NEGATIVE); NITRITE,URINE NEGATIVE (NEGATIVE); PROTEIN,URINE DIPSTICK NEGATIVE (NEGATIVE); URINE UROBILINOGEN 0.2 mg/dL (0.2 - 1)
[2018-11-20 13:40] LABS: CALCIUM OXALATE CRYSTALS,UR MODERATE (FEW); WBC,URINE (MAN) 0-5 /HPF (0-5)
[2018-11-20 13:41] LABS: BACTERIA,URINE FEW /HPF; EPITHELIAL CELLS,URINE MODERATE /LPF
[2018-11-20 13:48] VITALS: BP 189/86
== END 2018-11-20 13:54 | disposition home or self-care (01) ==
LOC: ER 11:48
DX: R19.7 Diarrhea, unspecified (principal); R11.0 Nausea; I10 Essential (primary) hypertension
CPT/HCPCS: 36415; 80053; 81001; 85025; 99283